=== PATIENT | female | born 1975 | race African-American/Black ===

== ENCOUNTER 2017-07-21 10:52 | Emergency (ER) | payer OTHER ==
[2017-07-21 11:05] VITALS: BMI 26.6
[2017-07-21] MEDS ORDERED: morphine CARPU-JECT 4 MG/1 ML DISP.SYRIN IVPUSH ONE (13:00)
[2017-07-21] MEDS ORDERED: morphine SULFATE 4 MG/ML VIAL ONE (13:36)
--- NOTE | 2017-07-21 13:46 | PDOC ---
History of Present Illness - General History Source: Patient Exam Limitations: No Limitations - History of Present Illness Initial Comments: 07/21/17 14:08 The patient is a 42 year old female, with a significant past medical history of Gastric bypass, HTN who presents to the emergency department with diffuse abdominal pain for the past 2 days. Patient reports pain began last week and describes it as tugging and pulling , 8/10 in severity. Patient states her pain has progressively worsened with associated nausea. Patient denies any exacerbating or alleviating factors. In the ED, is currently in pain. She denies chest pain, headache or dizziness. She denies fever, chills, vomit, diarrhea or constipation, any changes in flatus. She denies dysuria, frequency, urgency or hematuria. Patient denies sick contacts or recent travel. Allergies: NKA Past surgical history: Gastric bypass Social history: Tobacco use PCP: None <Ling Post - Last Filed: 07/21/17 19:05> <Elder Long - Last Filed: 07/21/17 19:45> <Blas Perkins - Last Filed: 07/24/17 23:41> - General Chief Complaint: Pain, Acute Stated Complaint: PAIN Time Seen by Provider: 07/21/17 12:23 Past History <Ling Post - Last Filed: 07/21/17 19:05> <Elder Long - Last Filed: 07/21/17 19:45> - Past Medical History COPD: No Diabetes: Yes (not on meds anymore after weight loss) HTN: Yes - Surgical History GI Surgery: Yes (GASTRIC BYPASS) - Immunization History Immunization Up to Date: Yes - Suicide/Smoking/Psychosocial Hx Smoking Status: No Smoking History: Never smoked Number of Cigarettes Smoked Daily: 3 Information on smoking cessation initiated: No Hx Alcohol Use: No Drug/Substance Use Hx: No Substance Use Type: None Hx Substance Use Treatment: No <Blas Perkins - Last Filed: 07/24/17 23:41> - Past Medical History Allergies/Adverse Reactions: Allergies Allergy/AdvReac Type Severity Reaction Status Date / Time No Known Allergies Allergy Verified 07/21/17 10:59 Review of Systems - Review of Systems Able to Perform ROS?: Yes Comments:: 07/21/17 14:08 A complete review of 10 out of 10 review of systems is taken and is negative apart from what is previously mentioned below and in the HPI. <Ling Post - Last Filed: 07/21/17 19:05> *Physical Exam - Vital Signs Last Vital Signs Temp Pulse Resp BP Pulse Ox 97.9 F 66 16 114/59 100 07/21/17 11:01 07/21/17 11:01 07/21/17 11:01 07/21/17 11:01 07/21/17 11:01 - Physical Exam Comments: 07/21/17 14:08 Vitals: Triage Vital signs reviewed General Appearance: no acute distress, well nourished well developed, Head: Atraumatic, normocephalic Neck: Supple;No Nuchal rigidity Chest Wall: Nontender Cardiac: Regular rate and rhythm, no murmurs, no rubs, no gallops, Lungs: Clear to auscultation bilateral, good air movement bilaterally, Abdomen: +Diffuse abdominal tenderness, maximal upper L tenderness. Soft, normal bowel sounds. Extremities: Full range of motion to all extremities, no cyanosis, clubbing, or edema Skin: Warm and dry, no rashes or lesions, no petechiae <Ling Post - Last Filed: 07/21/17 19:05> - Vital Signs Last Vital Signs Temp Pulse Resp BP Pulse Ox 97.9 F 66 16 114/59 100 07/21/17 11:01 07/21/17 11:01 07/21/17 11:01 07/21/17 11:01 07/21/17 11:01 <Elder Long - Last Filed: 07/21/17 19:45> - Vital Signs Last Vital Signs Temp Pulse Resp BP Pulse Ox 97.9 F 66 16 114/59 100 07/21/17 11:01 07/21/17 11:01 07/21/17 11:01 07/21/17 11:01 07/21/17 11:01 <Blas Perkins - Last Filed: 07/24/17 23:41> ED Treatment Course - LABORATORY CBC & Chemistry Diagram: 07/21/17 13:57 07/21/17 14:09 <Ling Post - Last Filed: 07/21/17 19:05> - LABORATORY CBC & Chemistry Diagram: 07/21/17 13:57 07/21/17 14:09 - ADDITIONAL ORDERS Additional order review: Laboratory Results 07/21/17 07/21/17 07/21/17 14:09 14:09 14:09 Sodium 140 Potassium 3.9 Chloride 103 Carbon Dioxide 27 Anion Gap 10 BUN 8 Creatinine 0.6 Random Glucose 90 Calcium 8.3 L Serum , Qual Negative Blood Type A POSITIVE Antibody Screen Negative 07/21/17 13:57 RBC 3.51 L MCV 85.6 MCHC 32.9 RDW 14.8 MPV 8.6 Neutrophils % 68.7 Lymphocytes % 21.5 Monocytes % 8.6 Eosinophils % 0.7 Basophils % 0.5 - Medications Given in the ED: ED Medications Discontinued Medications Generic Name Dose Route Start Last Admin Trade Name Elvira PRN Reason Stop Dose Admin Morphine Sulfate 4 mg 07/21/17 13:00 07/21/17 13:35 Morphine Injection - IVPUSH 07/21/17 13:01 4 mg ONCE ONE Administration Ondansetron HCl 4 mg 07/21/17 14:07 07/21/17 14:08 Zofran Injection IVPUSH 07/21/17 14:08 4 mg ONCE ONE Administration <Elder Long - Last Filed: 07/21/17 19:45> - LABORATORY CBC & Chemistry Diagram: 07/21/17 13:57 07/21/17 14:09 - RADIOLOGY Radiology Studies Ordered: Category Date Time Status ABDOMEN & PELVIS CT WITH CONTR [CT] Stat CT Scan 07/21/17 12:59 Ordered <Blas Perkins - Last Filed: 07/24/17 23:41> Medical Decision Making - Medical Decision Making 07/21/17 18:[address] Shahla Jones via phone answering service. Awaiting call back. 07/21/17 18:[address] Shahla Jones via phone answering service. Awaiting call back. 07/21/17 19:06 Patient to be trasnferred to [facility] Transfer center called. <Ling Post - Last Filed: 07/21/17 19:05> - Medical Decision Making 07/21/17 19:40 [facility] Transfer Center called @15:40pm. Transport Status update. <Elder Long - Last Filed: 07/21/17 19:45> - Medical Decision Making Well-appearing past medical history significant for previous gastric bypass Patient presents with abdominal pain for 2 days. We'll check labs hydrate pain medication CT abdomen and pelvis with oral and IV contrast and reassess CT findings as dictated. Pt. Consented for transfer. Dr. Bright Grimes surgery to admit patient. <Blas Perkins - Last Filed: 07/24/17 23:41> *DC/Admit/Observation/Transfer - Attestations Scribe Attestion: 07/21/17 14:08 Documentation prepared by Ling Post, acting as medical records analyst for Blas Perkins MD <Ling Post - Last Filed: 07/21/17 19:05> <Elder Long - Last Filed: 07/21/17 19:45> <Blas Perkins - Last Filed: 07/24/17 23:41> Diagnosis at time of Disposition: Abdominal pain - Discharge Dispostion Disposition: TRANSFER ACUTE CARE/OTHER HOSP Condition at time of disposition: Stable
[2017-07-21] MEDS ORDERED: ONDANSETRON 4 MG/2 ML VIAL ONE (13:48)
[2017-07-21] MEDS ORDERED: ONDANSETRON 4 MG/2 ML VIAL IVPUSH ONE (14:07)
[2017-07-21 14:26] LABS: BASOPHIL 0.5 % (0-2.0); EOSINOPHIL 0.7 % (0-4.5); MCH 28.2 pg (25.7-33.7); MCHC 32.9 g/dl (32.0-36.0); MEAN CELL VOLUME 85.6 fl (80-96); MEAN PLT VOLUME 8.6 fl (7.5-11.1); NEUTROPHILS 68.7 % (42.8-82.8); PLATELET COUNT 260 K/MM3 (134-434); RDW 14.8 % (11.6-15.6); WHITE BLOOD COUNT 6.5 K/mm3 (4.0-10.0)
[2017-07-21 14:49] LABS: ANION GAP 10 (8-16); CALCIUM 8.3 mg/dL (8.5-10.1); CO2 27 mmol/L (21-32); CREATININE 0.6 mg/dL (0.55-1.02); GLUCOSE,RANDOM 90 mg/dL (74-106)
[2017-07-21 20:50] VITALS: BP 115/75; PULSE 60; TEMP 98.1
== END 2017-07-21 22:26 | disposition short-term general hospital (02) ==
LOC: JER 10:52
PROC: 3E033GC Introduction of Other Therapeutic Substance into Peripheral Vein, Percutaneous Approach (ICD-10-PCS; principal; 2017-07-21)
PROC: 3E033NZ Introduction of Analgesics, Hypnotics, Sedatives into Peripheral Vein, Percutaneous Approach (ICD-10-PCS; 2017-07-21)
DX: R10.84 Generalized abdominal pain (principal); Z98.84 Bariatric surgery status; I10 Essential (primary) hypertension; E11.9 Type 2 diabetes mellitus without complications
CPT/HCPCS: 36415; 74177-TC; 80048; 84703; 85025; 86850; 86900; 86901; 99283-25; Q9967

== ENCOUNTER 2018-07-14 07:41 | Inpatient (IN) | payer OTHER ==
[2018-07-14 07:45] VITALS: BMI 30.4
--- NOTE | 2018-07-14 08:45 | PDOC ---
History of Present Illness - General Chief Complaint: Pain Stated Complaint: R SIDED ABD PAIN Time Seen by Provider: 07/14/18 08:23 History Source: Patient Exam Limitations: Clinical Condition - History of Present Illness Initial Comments: 07/14/18 08:40 Patient with history of multiple sclerosis not on medication a uterine fibroid present with complain of 4 days history of suprapubic and right pelvic pain since that her menstrual period 4 days ago. Patient reports she usually doesn't get this kind of pain with her menses and have regular monthly menstrual periods. Patient reported she was told she had uterine fibroids 3 years ago. Patient denies fever, chills, nausea, vomiting, diarrhea or constipation. Patient still on her menses now Timing/Duration: other (4 days) Past History - Past Medical History Allergies/Adverse Reactions: Allergies Allergy/AdvReac Type Severity Reaction Status Date / Time No Known Allergies Allergy Verified 07/14/18 07:45 COPD: No DVT: No Dementia: No Diabetes: No HTN: No Thyroid Disease: No Other medical history: MS NOT ON MEDS - Surgical History Abdominal Surgery: Yes (gastric bypass) GI Surgery: Yes (GASTRIC BYPASS) - Immunization History Immunization Up to Date: Yes - Suicide/Smoking/Psychosocial Hx Smoking Status: No Smoking History: Current every day smoker Number of Cigarettes Smoked Daily: 4 Information on smoking cessation initiated: Yes 'Breaking Loose' booklet given: 07/14/18 Hx Alcohol Use: No Drug/Substance Use Hx: No Substance Use Type: None Hx Substance Use Treatment: No Review of Systems - Review of Systems Able to Perform ROS?: Yes Is the patient limited Czech proficient: No Constitutional: No: Chills, Fever, Weakness HEENTM: No: Symptoms Reported Respiratory: No: Cough, Orthopnea, Shortness of Breath, SOB with Exertion, SOB at Rest, Stridor, Wheezing, Productive cough, Hemoptysis, Other Cardiac (ROS): No: Chest Pain, Edema, Irregular Heart Rate, Lightheadedness, Palpitations, Syncope, Chest Tightness, Other ABD/GI: Yes: See HPI, Abdominal cramping (suprapubic, right pelvic). No: Abdominal Distended, Constipated, Diarrhea, Difficulty Swallowing, Nausea, Rectal Bleeding, Vomiting : Yes: Pain (right pelvic). No: Burning, Dysuria, Discharge, Frequency, Flank Pain, Hematuria Musculoskeletal: No: Back Pain All Other Systems: Reviewed and Negative *Physical Exam - Vital Signs Last Vital Signs Temp Pulse Resp BP Pulse Ox 99.1 F 79 17 113/60 98 07/14/18 07:43 07/14/18 07:43 07/14/18 07:43 07/14/18 07:43 07/14/18 07:43 - Physical Exam Comments: 07/14/18 08:44 GENERAL: Well developed, well nourished. Awake and alert. In mild acute distress. CARDIOVASCULAR: Regular rate and rhythm. No murmurs, rubs, or gallops. Distal pulses are 2+ and symmetric. PULMONARY: No evidence of respiratory distress. Lungs clear to auscultation bilaterally. No wheezing, rales or rhonchi. ABDOMINAL: Moderate tenderness to right pelvic with mild tenderness to right lower quadrant without guarding or rebound.Soft. Non-distended. No organomegaly. Normoactive bowel sounds. : SKIN: Warm and dry. Normal capillary refill. No rashes. No jaundice. NEUROLOGICAL: Alert, awake, appropriate. PSYCHIATRIC: Cooperative. Good eye contact. Appropriate mood and affect. General Appearance: Yes: Nourished, Appropriately Dressed, Mild Distress ED Treatment Course - LABORATORY CBC & Chemistry Diagram: 07/14/18 08:43 07/14/18 08:43 - RADIOLOGY Radiology Studies Ordered: Category Date Time Status ABDOMEN US -LIMITED [US] Stat Ultrasound 07/14/18 08:32 Ordered TRANSVAGINAL ULTRASOUND US [US] Stat Ultrasound 07/14/18 08:32 Ordered Medical Decision Making - Medical Decision Making 07/14/18 08:45 Patient with history of multiple sclerosis did not on meds a uterine fibroids presenting with complain of right pelvic pain for 4 days since start of her menses 4 days ago. Exam significant for moderate right pelvic pain with mild right lower quadrant pain. UA and urine culture ordered. CBC CMP and urine hCG ordered. Abdominal pelvic ultrasound ordered. Toradol 60 mg IM for pain. Treat based on lab and imaging results 07/14/18 11:08 Patient with low Hem of 6.6. US results still pending. results discussed with patient and patient advised she will need blood transfusion and will have to be observed for at least 24hrs. Pt agrees to plan. medicine consult initiated 07/14/18 11:27 informed consent for blood transfusion obtained from patient 07/14/18 11:44 Patient admitted to medicine under Dr. Esquivel. spoke to Dr. Esquivel to suggest to get hem consult. consult to hem placed *DC/Admit/Observation/Transfer Diagnosis at time of Disposition: Anemia Qualifiers: Anemia type: unspecified type Qualified Code(s): D64.9 - Anemia, unspecified Uterine fibroid Qualifiers: Uterine leiomyoma location: unspecified location Qualified Code(s): D25.9 - Leiomyoma of uterus, unspecified - Discharge Dispostion Condition at time of disposition: Stable Decision to Admit order: Yes Decision to Admit order Date/Time: 07/14/18 11:10 Patient with low H&H and work on blood transfusion. Patient needs to be observed for at least 24 hours posttransfusion - Referrals Referrals: Augustin Olmedo [Primary Care Provider] - - Patient Instructions - Post Discharge Activity
[2018-07-14] MEDS ORDERED: KETOROLAC TROMETHAMINE 60 MG/2 ML VIAL IM ONE (08:47)
[2018-07-14] MEDS ORDERED: ACETAMINOPHEN 1000 MG/100 ML VIAL (NON FORMULARY) IVPB ONE (09:11)
[2018-07-14] MEDS ORDERED: ACETAMINOPHEN INJECTION 100 ML IVPB ONE (09:16)
--- NOTE | 2018-07-14 09:34 | PDOC ---
*Physical Exam - Vital Signs Last Vital Signs Temp Pulse Resp BP Pulse Ox 99.1 F 79 17 113/60 98 07/14/18 07:43 07/14/18 07:43 07/14/18 07:43 07/14/18 07:43 07/14/18 07:43 ED Treatment Course - LABORATORY CBC & Chemistry Diagram: 07/17/18 08:11 07/17/18 08:11 - Medications Given in the ED: ED Medications Discontinued Medications Generic Name Dose Route Start Last Admin Trade Name Elvira PRN Reason Stop Dose Admin Acetaminophen 1,000 mg 07/14/18 09:11 07/14/18 09:22 Ofirmev Injection - IVPB 07/14/18 09:12 1,000 mg ONCE ONE Administration Ketorolac Tromethamine 60 mg 07/14/18 08:47 07/14/18 09:12 Toradol Injection - IM 07/14/18 08:48 Not Given ONCE ONE Medical Decision Making - Medical Decision Making 07/14/18 09:30 Ms Mercado is a 43 yo F who presents to the ER with a complaint of right pelvic pain She has a h/o fibroids and MS She has had 4 days of suprapubic pain and pelvic pain that began when her period began No fevers or chills Labs US Re assess Found to be anemic Transfusion ordered Pt admitted to hospitalist *DC/Admit/Observation/Transfer Diagnosis at time of Disposition: Anemia, Uterine fibroid - Discharge Dispostion Condition at time of disposition: Stable - Referrals - Patient Instructions - Post Discharge Activity
[2018-07-14 10:34] LABS: HCG,QUALITATIVE URINE Negative
[2018-07-14 10:40] LABS: BASO % 0.3 % (0-2.0); EOS % 0.2 % (0-4.5); HEMATOCRIT 21.6 % (32.4-45.2); LYMPH % 10.1 % (8-40); MCH 20.6 pg (25.7-33.7); MCHC 30.4 g/dl (32.0-36.0); MEAN PLT VOLUME 8.4 fl (7.5-11.1); MONO % 13.1 % (3.8-10.2); NEUT % 76.3 % (42.8-82.8); PLATELET COUNT 301 K/MM3 (134-434); RBC 3.18 M/mm3 (3.60-5.2); RDW 19.3 % (11.6-15.6); WHITE BLOOD COUNT 9.2 K/mm3 (4.0-10.0)
[2018-07-14 10:50] LABS: URINE APPEARANCE SLCLOUDY; URINE BILIRUBIN NEGATIVE (<2.0 mg/dL); URINE COLOR AMBER; URINE GLUCOSE (UA) NEGATIVE (NEGATIVE); URINE KETONE NEGATIVE (NEGATIVE); URINE LEUK ESTERASE NEGATIVE (NEGATIVE); URINE NITRITE NEGATIVE (NEGATIVE); URINE PROTEIN NEGATIVE (NEGATIVE)
[2018-07-14 10:54] LABS: HEMOGLOBIN 6.6 GM/dL (10.7-15.3)
[2018-07-14 10:55] LABS: EPI CELLS RARE /HPF (FEW); URINE MUCUS RARE
[2018-07-14 11:02] LABS: ALBUMIN 3.4 g/dl (3.4-5.0); ALK PHOS 100 U/L (45-117); ANION GAP 9 MMOL/L (8-16); BILIRUBIN,TOTAL 0.4 mg/dL (0.2-1); BLOOD UREA NITROGEN 6 mg/dL (7-18); CALCIUM 8.1 mg/dL (8.5-10.1); CHLORIDE 101 mmol/L (98-107); CO2 28 mmol/L (21-32); CREATININE 0.6 mg/dL (0.55-1.3); GLUCOSE,RANDOM 78 mg/dL (74-106); POTASSIUM 3.6 mmol/L (3.5-5.1); SGOT/AST 30 U/L (15-37); SGPT/ALT 26 U/L (13-61); SODIUM 138 mmol/L (136-145); TOT PROT 7.2 g/dl (6.4-8.2)
[2018-07-14 12:11] LABS: ANISOCYTOSIS 2+; MACROCYTOSIS 0; PLATELET ESTIMATE NORMAL
[2018-07-14] MEDS ORDERED: ACETAMINOPHEN 325 MG TABLET (FP) PO ONE (13:03)
[2018-07-14] MEDS ORDERED: ACETAMINOPHEN 325 MG TABLET (FP) ONE (13:05)
[2018-07-14] MEDS ORDERED: diphenhydrAMINE HCL 25 MG CAPSULE (FP) PO ONE ×2 (13:05→13:06)
--- NOTE | 2018-07-14 15:11 | HP ---
Admitting History and Physical - Primary Care Physician PCP: Shara Barrett I (Stephanie Belcher) - Admission Chief Complaint: Suprapubic pain. Anemia History of Present Illness: Patient with history of multiple sclerosis not on medication a uterine fibroid present with complain of 4 days history of suprapubic and right pelvic pain since that her menstrual period 4 days ago. Patient reports she usually doesn't get this kind of pain with her menses and have regular monthly menstrual periods. Patient reported she was told she had uterine fibroids 3 years ago. Patient denies fever, chills, nausea, vomiting, diarrhea or constipation. Patient still on her menses now Last saw Dr Barrett 1 year ago for her physical Last saw NANOTECHNOLOGY TECHNICIAN Dr Velez 2-3 months ago, was told she has small fibroids and to monitor Received 2 units of PRBC upon admission History Source: Patient, Medical Record Limitations to Obtaining History: No Limitations - Past Medical History ...LMP: 07/11/18 ...: No - Smoking History Smoking history: Current every day smoker Aproximately how many cigarettes per day: 4 - Alcohol/Substance Use Hx Alcohol Use: No Home Medications - Allergies Allergies/Adverse Reactions: Allergies Allergy/AdvReac Type Severity Reaction Status Date / Time No Known Allergies Allergy Verified 07/14/18 07:45 - Home Medications Home Medications: Ambulatory Orders NK [No Known Home Medication] 07/14/18 Review of Systems - Review of Systems Constitutional: reports: Weakness Eyes: reports: No Symptoms HENT: reports: No Symptoms Neck: reports: No Symptoms Cardiovascular: reports: No Symptoms Respiratory: reports: No Symptoms Gastrointestinal: reports: Other (Suprapubic pain) Genitourinary: reports: No Symptoms, Menses (heavy) Breasts: reports: No Symptoms Reported Musculoskeletal: reports: No Symptoms Integumentary: reports: No Symptoms Neurological: reports: No Symptoms Endocrine: reports: No Symptoms Hematology/Lymphatic: reports: No Symptoms Psychiatric: reports: No Symptoms Physical Examination Vital Signs: Vital Signs Temperature 100.2 F H 07/14/18 13:40 Pulse Rate 70 07/14/18 13:40 Respiratory Rate 16 07/14/18 13:40 Blood Pressure 103/60 07/14/18 13:40 O2 Sat by Pulse Oximetry (%) 100 07/14/18 13:40 Constitutional: Yes: Well Nourished, No Distress, Calm Cardiovascular: Yes: Regular Rate and Rhythm, Murmur (Grade II/) Respiratory: Yes: Regular Gastrointestinal: Yes: Normal Bowel Sounds, Soft Musculoskeletal: Yes: WNL Extremities: Yes: WNL Edema: No Peripheral Pulses WNL: Yes Neurological: Yes: Alert, Oriented Psychiatric: Yes: Alert, Oriented Labs: CBC, BMP 07/14/18 08:43 07/14/18 08:43 Problem List - Problems (1) Anemia Assessment/Plan: -2/2 to fibroids and heavy menstrual bleeding -Check iron, thyroid profile, b12, stool OB -replete Iron with Venofer if needed -Last saw NANOTECHNOLOGY TECHNICIAN Dr Velez 2-3 months ago, was told she has small fibroids and to monitor -Received 2 units of PRBC upon admission -hematology consult -monitor labs Code(s): D64.9 - ANEMIA, UNSPECIFIED Qualifiers: Anemia type: unspecified type Qualified Code(s): D64.9 - Anemia, unspecified (2) Uterine fibroid Assessment/Plan: -NANOTECHNOLOGY TECHNICIAN consult outpatient Code(s): D25.9 - LEIOMYOMA OF UTERUS, UNSPECIFIED Qualifiers: Uterine leiomyoma location: unspecified location Qualified Code(s): D25.9 - Leiomyoma of uterus, unspecified (3) Abdominal pain Assessment/Plan: -acetaminophen 650 mg po Q6H PRN -Tramadol 50 mg Q6h PRN for pain 6-10 Code(s): R10.9 - UNSPECIFIED ABDOMINAL PAIN Assessment/Plan see problem list
--- NOTE | 2018-07-14 18:24 | CONSULT ---
Consult Consult Specialty:: Heme/Onc Referred by:: JHONATAN Foss Reason for Consultation:: Anemia - History of Present Illness Chief Complaint: Abdominal pain History of Present Illness: 43F with history of MS presents to the hospital with severe abdominal pain and cramping during her menses. She is currently menstruating and her LMP was 2017. She states that recently she has been having heavier than usual menses for the last 2-3 months. She also has had worsening pain than usual. She has not followed up with Dr. Velez/Letty for a while but was told she has a history of fibroids. 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 She denies nausea vomitng fever chills chest pain or SOB. She sometimes feels like she needs a V8 juice to wake her up and sh3e has been more fatigued lateley. Denies melanotic stool. - History Source History Provided By: Patient, Medical Record Limitations to Obtaining History: No Limitations - Past Medical History ...LMP: 07/11/18 ...: No Additional Medical History: multiple sclerosis. fibroids - Past Surgical History Additional Surgical History: gastric bypass - Alcohol/Substance Use Hx Alcohol Use: No - Smoking History Smoking history: Current every day smoker Aproximately how many cigarettes per day: 4 Home Medications - Allergies Allergies/Adverse Reactions: Allergies Allergy/AdvReac Type Severity Reaction Status Date / Time No Known Allergies Allergy Verified 07/14/18 07:45 - Home Medications Home Medications: Ambulatory Orders NK [No Known Home Medication] 07/14/18 Review of Systems - Review of Systems Constitutional: reports: Malaise Eyes: reports: No Symptoms HENT: reports: No Symptoms Neck: reports: No Symptoms Cardiovascular: reports: No Symptoms Respiratory: reports: No Symptoms Gastrointestinal: reports: No Symptoms Genitourinary: reports: No Symptoms Musculoskeletal: reports: No Symptoms Integumentary: reports: No Symptoms Neurological: reports: No Symptoms Physical Exam Vital Signs: Vital Signs Temperature 100.2 F H 07/14/18 13:40 Pulse Rate 70 07/14/18 13:40 Respiratory Rate 16 07/14/18 13:40 Blood Pressure 103/60 07/14/18 13:40 O2 Sat by Pulse Oximetry (%) 100 07/14/18 16:04 Constitutional: Yes: No Distress, Calm Eyes: Yes: Other (conjunctival pallor) HENT: Yes: Atraumatic Neck: Yes: Supple, Trachea Midline. No: Lymphadenopathy Cardiovascular: Yes: Regular Rate and Rhythm, S1, S2. No: Murmur Respiratory: Yes: Regular, CTA Bilaterally Gastrointestinal: Yes: Soft, Abdomen, Obese, Tenderness Extremities: Yes: Other (no inguinal lymphadenopahty) Edema: No Neurological: Yes: Alert, Oriented Labs: CBC, BMP 07/14/18 08:43 07/14/18 08:43 Imaging - Results Chest X-ray: Report Reviewed, Image Reviewed Ultrasound: Report Reviewed Assessment/Plan 43F with history of MS andf fibroids presents with painful menorrhagia. Problem List: Painful menorrhagia Multiple sclerosis s/p gastric bypass Plan: Check stool for occult blood Spoke to primary care team and states this is a chronic problem and patient needs to go see her COMPUTED TOMOGRAPHY SCANNER OPERATOR for follow up of fibroids agree with 2 units PRBCs Consider GI work up/celiac disease work up as outpatient Trend CBC Transfuse PRN Hb<7 Thank you for this consult
[2018-07-14] MEDS: ACETAMINOPHEN 325 MG TABLET (FP) PO PRN (18:49)
--- NOTE | 2018-07-14 20:00 | PN ---
Teaching Attending Note Name of Resident: Hernán Poole ATTENDING PHYSICIAN STATEMENT I saw and evaluated the patient. I reviewed the resident's note and discussed the case with the resident. I agree with the resident's findings and plan as documented. SUBJECTIVE: Patient seen and examined Ab-1 menarche age 11. Currently menstruating. Regular menses q month for 5 days with first 3 days heavy with clots. Presented with pain. Told of fibroids as outpatient. Presented with Hct 21% Has received one unit of packed cells to date. Past history of Multiple sclerosis- currently- no therapy Hx of gastric bypass. NO GI bleeding Occasional advil Last Vital Signs Temp Pulse Resp BP Pulse Ox 98.1 F 83 20 109/65 100 07/14/18 18:03 07/14/18 18:03 07/14/18 18:03 07/14/18 18:03 07/14/18 16:04 HEENT: LICO, EOM Intact Oropharynx: No thrush, No mucositis Neck: Supple Nodes: Without adenopathy Breasts: Without masses Cor: RSR, No murmurs, No gallops Lungs: Clear to P&A Abd: Soft, Normal bowel sounds, No organomegaly, tender suprapubic area CBC, BMP 07/14/18 08:43 07/14/18 08:43 Ext:No significant edema Skin: No rashes, Integument intact Current Medications Generic Name Dose Route Start Last Admin Trade Name Freq PRN Reason Stop Dose Admin Acetaminophen 650 mg 07/14/18 14:10 07/14/18 18:49 Tylenol - PO 650 mg Q4H PRN Administration FEVER Tramadol HCl 50 mg 07/14/18 18:36 Ultram - PO Q6H PRN PAIN LEVEL 6-10 OBJECTIVE:Lab - ferritin - 4 indicative of Fe++ deficiency. Consider parenterall Fe++ in view of bypass and absorption issues. STABLE ATTENDANT follow up. HbE, celiac screen, stool for occult blood. ASSESSMENT AND PLAN:
[2018-07-14] MEDS: traMADol HCL 50 MG TABLET PO PRN (23:00)
[2018-07-15 07:34] LABS: BASO % 0.3 % (0-2.0); EOS % 0.2 % (0-4.5); HEMATOCRIT 25.2 % (32.4-45.2); HEMOGLOBIN 7.7 GM/dL (10.7-15.3); LYMPH % 9.6 % (8-40); MCH 21.6 pg (25.7-33.7); MCHC 30.7 g/dl (32.0-36.0); MEAN CELL VOLUME 70.4 fl (80-96); MONO % 9.7 % (3.8-10.2); NEUT % 80.2 % (42.8-82.8); PLATELET COUNT 304 K/MM3 (134-434); RBC 3.58 M/mm3 (3.60-5.2); RDW 21.3 % (11.6-15.6); WHITE BLOOD COUNT 11.3 K/mm3 (4.0-10.0)
[2018-07-15 07:59] LABS: ALBUMIN 3.1 g/dl (3.4-5.0); ALK PHOS 89 U/L (45-117); ANION GAP 9 MMOL/L (8-16); BILIRUBIN,TOTAL 0.7 mg/dL (0.2-1); BLOOD UREA NITROGEN 6 mg/dL (7-18); CALCIUM 7.9 mg/dL (8.5-10.1); CHLORIDE 102 mmol/L (98-107); CO2 28 mmol/L (21-32); CREATININE 0.5 mg/dL (0.55-1.3); GLUCOSE,RANDOM 76 mg/dL (74-106); POTASSIUM 3.8 mmol/L (3.5-5.1); SGOT/AST 24 U/L (15-37); SGPT/ALT 22 U/L (13-61); SODIUM 139 mmol/L (136-145); TOT PROT 6.7 g/dl (6.4-8.2)
[2018-07-15] MEDS: traMADol HCL 50 MG TABLET PO PRN ×2 (09:15→15:37)
--- NOTE | 2018-07-15 10:50 | PN ---
Progress Note, Physician Chief Complaint: patient seen and examined has abdominal pain h/h noted - Current Medication List Current Medications: Active Medications Acetaminophen (Tylenol -) 650 mg PO Q4H PRN PRN Reason: FEVER Last Admin: 07/14/18 18:49 Dose: 650 mg Tramadol HCl (Ultram -) 50 mg PO Q6H PRN PRN Reason: PAIN LEVEL 6-10 Last Admin: 07/15/18 09:15 Dose: 50 mg - Objective Vital Signs: Vital Signs Temperature 98.9 F 07/15/18 06:00 Pulse Rate 70 07/15/18 06:00 Respiratory Rate 20 07/15/18 06:00 Blood Pressure 103/64 07/15/18 06:00 O2 Sat by Pulse Oximetry (%) 100 07/14/18 21:00 Constitutional: Yes: Mild Distress Cardiovascular: Yes: Regular Rate and Rhythm, S1, S2 Respiratory: Yes: CTA Bilaterally Gastrointestinal: Yes: Tenderness (RLQ) Edema: No Neurological: Yes: Alert, Oriented Labs: CBC, BMP 07/15/18 06:00 07/15/18 06:00 Problem List - Problems (1) Anemia Assessment/Plan: iv venofer prbc to improve h/h above 8 only got 1 unit of prbc so far and h/h improve from 6-7 heme on board secondary to heavy menstrual periods Code(s): D64.9 - ANEMIA, UNSPECIFIED Qualifiers: Anemia type: iron deficiency Qualified Code(s): D64.9 - Anemia, unspecified (2) Uterine fibroid Assessment/Plan: mri of pelvis to look for infarction /necrosis of fibroids tenderness on exam pain meds obgyn consult ordered Code(s): D25.9 - LEIOMYOMA OF UTERUS, UNSPECIFIED Qualifiers: Uterine leiomyoma location: unspecified location Qualified Code(s): D25.9 - Leiomyoma of uterus, unspecified (3) Abdominal pain Assessment/Plan: secondary to fibroids Code(s): R10.9 - UNSPECIFIED ABDOMINAL PAIN
--- NOTE | 2018-07-15 10:55 | PN ---
Progress Note (short form) - Note Progress Note: patient has low grade temp 100.1 leukocytosis noted siddhartha get MRI of pelvis cultures are pending given temp 100.9 will hold off on transfusion right now til temp is < 99.0 ID consult Problem List - Problems (1) Anemia Code(s): D64.9 - ANEMIA, UNSPECIFIED Qualifiers: Anemia type: iron deficiency Qualified Code(s): D64.9 - Anemia, unspecified (2) Uterine fibroid Code(s): D25.9 - LEIOMYOMA OF UTERUS, UNSPECIFIED Qualifiers: Uterine leiomyoma location: unspecified location Qualified Code(s): D25.9 - Leiomyoma of uterus, unspecified (3) Abdominal pain Code(s): R10.9 - UNSPECIFIED ABDOMINAL PAIN
--- NOTE | 2018-07-15 14:30 | PN ---
Progress Note (short form) - Note Progress Note: ID Consult dictated 43 y/o female with hx uterine fibroids admitted with pelvic pain, vaginal bleeding, anemia Febrile 100.9 ? Fever secondary to degenerating fibroids ?PID Await c/s Empiric zosyn/ doxycycline ANTHROPOLOGIST PHYSICAL consult HIV test ( pt consents)
--- NOTE | 2018-07-15 15:13 | CONS ---
DATE OF CONSULTATION: 07/15/2018 The patient is a 43-year-old female with a known history of uterine fibroids evaluated for fever. She was admitted to the hospital on July 15, 2018 with a 4-day history of suprapubic and right pelvic pain. She was evaluated in the emergency room where she was noted to be markedly anemic with a hemoglobin of 6.6. The patient has a known history of uterine fibroids and presently has her menstrual period. She reports excessive bleeding over the past 2 to 3 months. Her course has now been complicated by fever to 100.9. The patient states that she has felt febrile and denies any shaky chills. She denies any vaginal discharge other than bleeding. No dysuria or hematuria although she does experience relief after micturition. She denies any chest pain, shortness of breath, cough or sputum production. PAST MEDICAL HISTORY: Positive for multiple sclerosis not presently on treatment and a history of uterine fibroids. PAST SURGICAL HISTORY: Status post gastric bypass. ALLERGIES: No known allergies. MEDICATIONS: Include Tylenol and Ultram. SOCIAL HISTORY: She lives at home in the community. She is a smoker. She denies a history of alcohol abuse or illicit drug use. Her HIV status is not known. SYSTEM REVIEW: Neurologic: No loss of consciousness, seizure activity or focal weakness. Cardiac: Negative chest pain or palpitations. Respiratory: Negative cough or sputum production. Gastrointestinal: Negative vomiting. No diarrhea. Genitourinary: As per HPI. LABORATORY DATA: White count 11.3, hematocrit 25.2, and platelet count 304. Creatinine 0.5. Blood cultures pending. Urine culture no growth. Urine for chlamydia and gonorrhea pending. Chest x-ray is negative for acute infiltrate. PHYSICAL EXAMINATION: General: She is awake. She is in moderate distress secondary to pelvic pain. Vital Signs: Temperature 100.9, blood pressure 111/57, pulse 82 and regular, and respirations 18 per minute. HEENT: Sclerae anicteric. Heart: Sounds S1, S2. Lungs: Clear bilaterally. Abdomen: Soft. There is suprapubic and right lower abdominal pain to palpation. No mass, rebound or rigidity. Extremities: Negative for edema. IMPRESSION: This is a 43-year-old female with a history of uterine fibroids admitted with pelvic pain, vaginal bleeding and anemia now febrile at 100.9. 1. Possible fever secondary to degenerating fibroids. 2. Rule out pelvic inflammatory disease. PLAN: Await cultures. Await urine for chlamydia and gonorrhea. TRANSCRIPTION SPECIALIST consult. Empiric antibiotic coverage with Zosyn and doxycycline. HIV test (the patient gives verbal consent). We will follow. Thank you for the kind referral. NOE PATEL M.D. [id number]
[2018-07-15] MEDS ORDERED: PIPERACILLIN/TAZOBACTAM 3.375 GM VIAL IVPB ONE (15:32)
[2018-07-15] MEDS ORDERED: DEXTROSE 5%-WATER - 50 ML IVPB ONE (15:32)
[2018-07-15] MEDS: PIPERACILLIN/TAZOB 3.375 GM 3.375 GM in DEXTROSE 5%-WATER - 50 ML IVPB SCH ×2 (15:37→17:09)
[2018-07-15] MEDS: ACETAMINOPHEN 325 MG TABLET (FP) PO PRN ×2 (15:37→21:30)
[2018-07-15] MEDS ORDERED: PT OWN MED DRAWER 7, Y5N ONE (17:55)
[2018-07-15] MEDS: DOXYCYCLINE HYCLATE 100 MG CAPSULE PO SCH (17:58)
[2018-07-15] MEDS ORDERED: SODIUM CHLORIDE 1,000 ML IV STA (18:18)
--- NOTE | 2018-07-15 23:30 | CONS ---
DATE OF CONSULTATION: 07/15/2018 REASON FOR CONSULTATION: Pelvic pain, fever, fibroid uterus, anemia. HISTORY OF PRESENT ILLNESS: I was asked to see this patient because of history of fibroid and anemia. Patient is a 43-year-old 3 para 3 with 2 previous and 1 normal vaginal delivery. Known history of fibroid uterus, who was admitted with severe anemia and fever for 4 days. She states that her last period was a week ago and the day after the period started, she started feeling warm and having pain which was mostly located on the right side of the pelvic area with cramps felt weak. No vaginal discharge, no dysuria, no nausea, vomiting or diarrhea. The patient still has light bleeding from her period. On admission, her temperature was 99.9, which she spiked to 101 degree Fahrenheit. Her blood pressure was 92/60. Her laboratory, her white count on admission was 9.2, hemoglobin 6.3, hematocrit 20.1. Patient received 2 units of packed RBCs, her white count has increased to 11.3, hemoglobin 7.7, hematocrit 25. At this time the patient is asymptomatic but has some mild lower abdominal pain. PAST MEDICAL HISTORY: Significant for multiple sclerosis. She is not on any medication. Her previous Pap smear has been normal. She denied any history of PID or history of sexually transmitted infection. PHYSICAL EXAMINATION: GENERAL: Patient was alert, oriented, and comfortable in bed. ABDOMEN: Soft. No distention. There was right lower quadrant tenderness with palpation and also she had some pain on the mid low pelvic area. PELVIS: Pelvic exam showed external genitalia to be normal. Vagina had some dark old blood. Cervix was clean. No gross lesion. No cervical motion tenderness. Uterus was enlarged, approximately 14 weeks size and tender. Tenderness mostly on the right adnexal area but no masses were palpable. Fibroids were felt. IMPRESSION: Menorrhagia, anemia secondary to fibroid uterus. Fever and right lower quadrant pain. Rule out appendicitis. Possible fibroid degeneration. Possible pelvic inflammatory disease. Advise blood transfusion to bring hemoglobin to 9 or [address] IV [address] scan of the pelvis and abdomen, rule out appendicitis. Also surgical consultation. For present time, please continue IV antibiotic. We will follow up after the CT scan done. LETTY AHUMADA M.D. [id number]
[2018-07-16] MEDS ORDERED: PIPERACILLIN/TAZOBACTAM 3.375 GM VIAL IVPB ONE ×3 (01:31→17:59)
[2018-07-16] MEDS ORDERED: DEXTROSE 5%-WATER - 50 ML IVPB ONE ×3 (01:32→17:59)
[2018-07-16] MEDS: PIPERACILLIN/TAZOB 3.375 GM 3.375 GM in DEXTROSE 5%-WATER - 50 ML IVPB SCH ×3 (02:18→18:04)
[2018-07-16] MEDS ORDERED: INSULIN (NOVOLOG) ASPART 100 UNITS/ML 10ML VIAL ONE (07:00)
[2018-07-16 07:19] LABS: BASO % 0.2 % (0-2.0); EOS % 0.6 % (0-4.5); HEMATOCRIT 26.1 % (32.4-45.2); HEMOGLOBIN 8.3 GM/dL (10.7-15.3); LYMPH % 10.8 % (8-40); MCH 22.9 pg (25.7-33.7); MCHC 31.8 g/dl (32.0-36.0); MEAN PLT VOLUME 8.1 fl (7.5-11.1); MONO % 10.5 % (3.8-10.2); NEUT % 77.9 % (42.8-82.8); PLATELET COUNT 291 K/MM3 (134-434); RBC 3.63 M/mm3 (3.60-5.2); RDW 21.5 % (11.6-15.6); WHITE BLOOD COUNT 10.5 K/mm3 (4.0-10.0)
[2018-07-16 07:53] LABS: ALBUMIN 2.8 g/dl (3.4-5.0); ALK PHOS 85 U/L (45-117); ANION GAP 6 MMOL/L (8-16); BILIRUBIN,TOTAL 0.6 mg/dL (0.2-1); BLOOD UREA NITROGEN 6 mg/dL (7-18); CALCIUM 8.1 mg/dL (8.5-10.1); CHLORIDE 103 mmol/L (98-107); CO2 31 mmol/L (21-32); CREATININE 0.6 mg/dL (0.55-1.3); GLUCOSE,RANDOM 82 mg/dL (74-106); SGOT/AST 30 U/L (15-37); SGPT/ALT 24 U/L (13-61); SODIUM 139 mmol/L (136-145); TOT PROT 6.5 g/dl (6.4-8.2)
[2018-07-16 08:06] LABS: SERUM IRON SATURATION 12 % (15-55); TOTAL IRON BINDING CAPACITY 412 ug/dL (250-450); UIBC 364 ug/dL (131-425)
[2018-07-16] MEDS ORDERED: PT OWN MED DRAWER 7, Y5N ONE (09:30)
[2018-07-16] MEDS: DOXYCYCLINE HYCLATE 100 MG CAPSULE PO SCH ×2 (09:35→17:13)
--- NOTE | 2018-07-16 12:35 | PN ---
Progress Note, Physician Chief Complaint: feeling cold with shivers on iv abx has abdominal pain awaiting MRI result - Current Medication List Current Medications: Active Medications Acetaminophen (Tylenol -) 650 mg PO Q4H PRN PRN Reason: FEVER Last Admin: 07/15/18 21:30 Dose: 650 mg Doxycycline Hyclate (Vibramycin -) 100 mg PO BID@1000,1800 ARLYN Last Admin: 07/16/18 09:35 Dose: 100 mg Piperacillin Sod/Tazobactam (Sod 3.375 gm/ Dextrose) 50 mls @ 100 mls/hr IVPB Q8H-IV ARLYN; Protocol Last Admin: 07/16/18 09:35 Dose: 100 mls/hr Tramadol HCl (Ultram -) 50 mg PO Q6H PRN PRN Reason: PAIN LEVEL 6-10 Last Admin: 07/15/18 15:37 Dose: 50 mg - Objective Vital Signs: Vital Signs Temperature 100.0 F H 07/16/18 10:00 Pulse Rate 65 07/16/18 10:00 Respiratory Rate 20 07/16/18 10:00 Blood Pressure 109/78 07/16/18 10:00 O2 Sat by Pulse Oximetry (%) 98 07/15/18 21:00 Constitutional: Yes: Calm Cardiovascular: Yes: Regular Rate and Rhythm, S1, S2 Respiratory: Yes: CTA Bilaterally Gastrointestinal: Yes: Tenderness, Other (RLQ) Edema: No Neurological: Yes: Alert, Oriented Labs: CBC, BMP 07/16/18 06:00 07/16/18 06:00 Problem List - Problems (1) Anemia Assessment/Plan: iv venofer prbc to improve h/h above 8 s/p units of PRBC heme on board secondary to heavy menstrual periods Code(s): D64.9 - ANEMIA, UNSPECIFIED Qualifiers: Anemia type: iron deficiency Qualified Code(s): D64.9 - Anemia, unspecified (2) Uterine fibroid Assessment/Plan: mri of pelvis to look for infarction /necrosis of fibroids-pending result tenderness on exam pain meds obgyn saw patient Code(s): D25.9 - LEIOMYOMA OF UTERUS, UNSPECIFIED Qualifiers: Uterine leiomyoma location: unspecified location Qualified Code(s): D25.9 - Leiomyoma of uterus, unspecified (3) Abdominal pain Assessment/Plan: secondary to fibroids Code(s): R10.9 - UNSPECIFIED ABDOMINAL PAIN
--- NOTE | 2018-07-16 14:41 | CONSULT ---
Consult Consult Specialty:: General Surgery Reason for Consultation:: abdominal pain - History of Present Illness Chief Complaint: abdominal pain History of Present Illness: 43yo female PMH multiple sclerosis not on medication a uterine fibroid present with complain of 4 days history of suprapubic and right pelvic pain since that her menstrual period 4 days ago. Patient reports she usually doesn't get this kind of pain with her menses and have regular monthly menstrual periods. Patient reported she was told she had uterine fibroids 3 years ago. Patient denies fever, chills, nausea, vomiting, diarrhea or constipation. Patient still on her menses now. we were called to assess. - History Source History Provided By: Patient, Medical Record Limitations to Obtaining History: No Limitations - Past Medical History ...LMP: 07/11/18 ...: No Additional Medical History: multiple sclerosis. fibroids - Past Surgical History Additional Surgical History: gastric bypass - Alcohol/Substance Use Hx Alcohol Use: No - Smoking History Smoking history: Current every day smoker Aproximately how many cigarettes per day: 4 Home Medications - Allergies Allergies/Adverse Reactions: Allergies Allergy/AdvReac Type Severity Reaction Status Date / Time No Known Allergies Allergy Verified 07/14/18 07:45 - Home Medications Home Medications: Ambulatory Orders NK [No Known Home Medication] 07/14/18 Review of Systems - Review of Systems Constitutional: denies: Chills, Fever Eyes: denies: Blurred Vision, Recent Change in Vision HENT: denies: Difficult Swallowing, Throat Pain Neck: denies: Stiffness, Tenderness Cardiovascular: denies: Chest Pain, Palpitations Respiratory: denies: Cough, SOB Gastrointestinal: reports: Abdominal Pain. denies: Constipation, Diarrhea Genitourinary: denies: Discharge, Dysuria Breasts: reports: No Symptoms Reported. denies: Pain Musculoskeletal: denies: Back Pain, Muscle Pain, Muscle Weakness Integumentary: denies: Erythema, Lesions, Rash Neurological: denies: Seizure, Syncope Endocrine: denies: Unexplained Weight Gain, Unexplained Weight Loss Hematology/Lymphatic: denies: Easily Bruised, Excessive Bleeding Psychiatric: denies: Anxiety, Depression Physical Exam Vital Signs: Vital Signs Temperature 100.0 F H 07/16/18 10:00 Pulse Rate 65 07/16/18 10:00 Respiratory Rate 20 07/16/18 10:00 Blood Pressure 109/78 07/16/18 10:00 O2 Sat by Pulse Oximetry (%) 98 07/15/18 21:00 Constitutional: Yes: Well Nourished, No Distress, Calm Eyes: Yes: Conjunctiva Clear, EOM Intact HENT: Yes: Atraumatic, Normocephalic Neck: Yes: Supple, Trachea Midline Cardiovascular: Yes: Regular Rate and Rhythm, S1, S2 Respiratory: Yes: Regular, CTA Bilaterally Gastrointestinal: Yes: Normal Bowel Sounds, Soft, Abdomen, Obese, Palpable Mass , Tenderness (in lover abdomen bilateral and fillness RLQ). No: Pulsatile Mass , Tenderness, Epigastrium, Tenderness, Rebound Renal/: No: CVA Tenderness - Left, CVA Tenderness - Right Musculoskeletal: No: Muscle Pain, Muscle Weakness Extremities: No: Cool, Cyanosis Edema: No Peripheral Pulses WNL: Yes Integumentary: No: Jaundice, Rash Neurological: Yes: Alert, Oriented Psychiatric: Yes: Alert, Oriented Labs: CBC, BMP 07/16/18 06:00 07/16/18 06:00 Imaging - Results Cat Scan: Report Reviewed, Image Reviewed (no accpendicitis. there is a fibroid uterus without clear sign of infacrtion of hemmorahage) Problem List - Problems (1) Uterine fibroid Assessment/Plan: 43 yo female with large exophytic unterine fibroids, possible infarction causing abdominal pain. no acute intervention from general surgery is indicated at this time. Diet as tolerated adequate analgeas urgent Panel Coverer evaluation Thank you for the opportunity to participate in the care of this patient. Code(s): D25.9 - LEIOMYOMA OF UTERUS, UNSPECIFIED Qualifiers: Uterine leiomyoma location: unspecified location Qualified Code(s): D25.9 - Leiomyoma of uterus, unspecified (2) Multiple sclerosis Code(s): G35 - MULTIPLE SCLEROSIS (3) Anemia Code(s): D64.9 - ANEMIA, UNSPECIFIED Qualifiers: Anemia type: iron deficiency (4) Abdominal pain Code(s): R10.9 - UNSPECIFIED ABDOMINAL PAIN
--- NOTE | 2018-07-16 15:16 | PN ---
Progress Note, Physician History of Present Illness: Awake, alert Supine in bed Now with lower abdominal pain more localized to RLQ No N/V Less vaginal bleeding Low grade fever - Current Medication List Current Medications: Active Medications Acetaminophen (Tylenol -) 650 mg PO Q4H PRN PRN Reason: FEVER Last Admin: 07/15/18 21:30 Dose: 650 mg Doxycycline Hyclate (Vibramycin -) 100 mg PO BID@1000,1800 ARLYN Last Admin: 07/16/18 09:35 Dose: 100 mg Piperacillin Sod/Tazobactam (Sod 3.375 gm/ Dextrose) 50 mls @ 100 mls/hr IVPB Q8H-IV ARLYN; Protocol Last Admin: 07/16/18 09:35 Dose: 100 mls/hr Tramadol HCl (Ultram -) 50 mg PO Q6H PRN PRN Reason: PAIN LEVEL 6-10 Last Admin: 07/15/18 15:37 Dose: 50 mg - Objective Vital Signs: Vital Signs Temperature 100.0 F H 07/16/18 10:00 Pulse Rate 65 07/16/18 10:00 Respiratory Rate 20 07/16/18 10:00 Blood Pressure 109/78 07/16/18 10:00 O2 Sat by Pulse Oximetry (%) 98 07/15/18 21:00 Constitutional: Yes: No Distress Cardiovascular: Yes: Regular Rate and Rhythm, S1, S2 Respiratory: Yes: CTA Bilaterally Gastrointestinal: Yes: Normal Bowel Sounds, Soft, Tenderness, Other (+ RLQ tenderness to palp) Edema: No Labs: CBC, BMP 07/16/18 06:00 07/16/18 06:00 Assessment/Plan Now more localized RLQ tenderness R/O appendicitis Fibroid uterus/ vaginal bleeding/ anemia Fever ? degenerating fibroid ? PID ? appendicits For stat CT abdo/ pelvis Surgical consult appreciated Continue zosyn/ doxycycline
[2018-07-16] MEDS: ACETAMINOPHEN 325 MG TABLET (FP) PO PRN (17:12)
[2018-07-16] MEDS: traMADol HCL 50 MG TABLET PO PRN (18:07)
--- NOTE | 2018-07-16 20:47 | PN ---
Progress Note (short form) - Note Progress Note: Patient seen and examined Feels better. 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
[2018-07-17 00:08] LABS: GLIADIN ANTIBODY IGA 4 units (0-19); GLIADIN ANTIBODY IGG 2 units (0-19); TRANSGLUTAMINASE IGG 3 U/mL (0-5)
[2018-07-17] MEDS ORDERED: PIPERACILLIN/TAZOBACTAM 3.375 GM VIAL IVPB ONE ×3 (03:32→19:17)
[2018-07-17] MEDS ORDERED: DEXTROSE 5%-WATER - 50 ML IVPB ONE ×3 (03:32→19:18)
[2018-07-17] MEDS: PIPERACILLIN/TAZOB 3.375 GM 3.375 GM in DEXTROSE 5%-WATER - 50 ML IVPB SCH ×3 (03:43→19:20)
[2018-07-17 09:12] LABS: HEMATOCRIT 27.4 % (32.4-45.2); HEMOGLOBIN 8.6 GM/dL (10.7-15.3); MCH 22.6 pg (25.7-33.7); MCHC 31.3 g/dl (32.0-36.0); MEAN CELL VOLUME 72.2 fl (80-96); MEAN PLT VOLUME 7.9 fl (7.5-11.1); PLATELET COUNT 371 K/MM3 (134-434); RBC 3.79 M/mm3 (3.60-5.2); RDW 22.2 % (11.6-15.6)
[2018-07-17] MEDS ORDERED: PT OWN MED DRAWER 7, Y5N ONE (09:25)
[2018-07-17] MEDS: DOXYCYCLINE HYCLATE 100 MG CAPSULE PO SCH ×2 (09:34→19:20)
[2018-07-17 09:38] LABS: ALBUMIN 3.1 g/dl (3.4-5.0); ALK PHOS 91 U/L (45-117); ANION GAP 6 MMOL/L (8-16); BILIRUBIN,TOTAL 0.7 mg/dL (0.2-1); BLOOD UREA NITROGEN 5 mg/dL (7-18); CALCIUM 8.4 mg/dL (8.5-10.1); CHLORIDE 102 mmol/L (98-107); CO2 30 mmol/L (21-32); CREATININE 0.7 mg/dL (0.55-1.3); GLUCOSE,RANDOM 89 mg/dL (74-106); POTASSIUM 3.9 mmol/L (3.5-5.1); SGOT/AST 32 U/L (15-37); SGPT/ALT 28 U/L (13-61); SODIUM 139 mmol/L (136-145); TOT PROT 7.1 g/dl (6.4-8.2)
[2018-07-17] MEDS: traMADol HCL 50 MG TABLET PO PRN (09:38)
[2018-07-17] MEDS ORDERED: IRON SUCROSE INJECTION 200 MG in SODIUM CHLORIDE 90 ML IVPB ONE (10:15)
--- NOTE | 2018-07-17 11:27 | PN ---
Progress Note, Physician Chief Complaint: Abdominal pain Anemia Uterine fibroids History of Present Illness: NAD c/o abdominal pain On IV abx for intermittent fevers Cultures so far negative CT abd/pelvis: No obvious acute appendicitis is seen as discussed above. If there is ongoing clinical concern additional evaluation utilizing contrast enhanced CT or MRI is suggested. As on a prior CT exam of 07/21/2017 an approximately 6.4 cm subserosal leiomyoma is noted along the right superolateral aspect of the uterine fundus bulging into the right mid and upper pelvis. - Current Medication List Current Medications: Active Medications Acetaminophen (Tylenol -) 650 mg PO Q4H PRN PRN Reason: FEVER Last Admin: 07/16/18 17:12 Dose: 650 mg Doxycycline Hyclate (Vibramycin -) 100 mg PO BID@1000,1800 ARLYN Last Admin: 07/17/18 09:34 Dose: 100 mg Piperacillin Sod/Tazobactam (Sod 3.375 gm/ Dextrose) 50 mls @ 100 mls/hr IVPB Q8H-IV ARLYN; Protocol Last Admin: 07/17/18 09:34 Dose: 100 mls/hr Tramadol HCl (Ultram -) 50 mg PO Q6H PRN PRN Reason: PAIN LEVEL 6-10 Last Admin: 07/17/18 09:38 Dose: 50 mg - Objective Vital Signs: Vital Signs Temperature 98.2 F 07/17/18 10:00 Pulse Rate 79 07/17/18 10:00 Respiratory Rate 18 07/17/18 10:00 Blood Pressure 104/67 07/17/18 10:00 O2 Sat by Pulse Oximetry (%) 98 07/16/18 09:00 Constitutional: Yes: Well Nourished, No Distress, Calm Cardiovascular: Yes: Regular Rate and Rhythm Respiratory: Yes: Regular Gastrointestinal: Yes: Normal Bowel Sounds, Soft, Tenderness (BL LQ) Musculoskeletal: Yes: WNL Extremities: Yes: WNL Edema: No Peripheral Pulses WNL: Yes Neurological: Yes: Alert, Oriented Psychiatric: Yes: Alert, Oriented Labs: CBC, BMP 07/17/18 08:11 07/17/18 08:11 Problem List - Problems (1) Anemia Assessment/Plan: -2/2 to fibroids and heavy menstrual bleeding -Low on iron -thyroid profile, b12, stool OB-negative -replete Iron with Venofer -Seen by Dr Lopez -PRBC for Hg below 7.0 -hematology consult on board -monitor labs Code(s): D64.9 - ANEMIA, UNSPECIFIED Qualifiers: Anemia type: iron deficiency (2) Uterine fibroid Assessment/Plan: -ETCHER AIRCRAFT consult on board-no intervention recommended at this time -Seen by Surgery-no surgical intervention recommended at this time Code(s): D25.9 - LEIOMYOMA OF UTERUS, UNSPECIFIED Qualifiers: Uterine leiomyoma location: unspecified location Qualified Code(s): D25.9 - Leiomyoma of uterus, unspecified (3) Abdominal pain Assessment/Plan: -acetaminophen 650 mg po Q6H PRN -Tramadol 50 mg Q6h PRN for pain 6-10 -CT abd: No obvious acute appendicitis is seen as discussed above. If there is ongoing clinical concern additional evaluation utilizing contrast enhanced CT or MRI is suggested. As on a prior CT exam of 07/21/2017 an approximately 6.4 cm subserosal leiomyoma is noted along the right superolateral aspect of the uterine fundus bulging into the right mid and upper pelvis. -MRI abdomen/pelvis results pending Code(s): R10.9 - UNSPECIFIED ABDOMINAL PAIN Assessment/Plan see problem list Self ambulatory
--- NOTE | 2018-07-17 11:48 | PN ---
Progress Note, Physician History of Present Illness: Awake, alert Supine in bed Less R lower abdominal pain No N/V No vaginal bleeding Temps down afebrile - Current Medication List Current Medications: Active Medications Acetaminophen (Tylenol -) 650 mg PO Q4H PRN PRN Reason: FEVER Last Admin: 07/16/18 17:12 Dose: 650 mg Doxycycline Hyclate (Vibramycin -) 100 mg PO BID@1000,1800 ARLYN Last Admin: 07/17/18 09:34 Dose: 100 mg Piperacillin Sod/Tazobactam (Sod 3.375 gm/ Dextrose) 50 mls @ 100 mls/hr IVPB Q8H-IV ARLYN; Protocol Last Admin: 07/17/18 09:34 Dose: 100 mls/hr Tramadol HCl (Ultram -) 50 mg PO Q6H PRN PRN Reason: PAIN LEVEL 6-10 Last Admin: 07/17/18 09:38 Dose: 50 mg - Objective Vital Signs: Vital Signs Temperature 98.2 F 07/17/18 10:00 Pulse Rate 79 07/17/18 10:00 Respiratory Rate 18 07/17/18 10:00 Blood Pressure 104/67 07/17/18 10:00 O2 Sat by Pulse Oximetry (%) 98 07/16/18 09:00 Constitutional: Yes: No Distress Eyes: Yes: Conjunctiva Clear Cardiovascular: Yes: Regular Rate and Rhythm, S1, S2 Respiratory: Yes: CTA Bilaterally Gastrointestinal: Yes: Normal Bowel Sounds, Soft. No: Tenderness Labs: CBC, BMP 07/17/18 08:11 07/17/18 08:11 Assessment/Plan Fibroid uterus/ vaginal bleeding/ anemia Fever ? degenerating fibroid ? PID ? appendicits CT/ MRI poorly visualized Discussed with radiologist suggested CT A/P with IV/oral contrasr to better visualized appendix Continue zosyn/ doxycycline
[2018-07-17] MEDS: ACETAMINOPHEN 325 MG TABLET (FP) PO PRN (15:15)
[2018-07-18] MEDS ORDERED: PIPERACILLIN/TAZOBACTAM 3.375 GM VIAL IVPB ONE ×3 (00:36→17:08)
[2018-07-18] MEDS ORDERED: DEXTROSE 5%-WATER - 50 ML IVPB ONE ×3 (00:37→17:09)
[2018-07-18] MEDS: traMADol HCL 50 MG TABLET PO PRN (01:18)
[2018-07-18] MEDS: PIPERACILLIN/TAZOB 3.375 GM 3.375 GM in DEXTROSE 5%-WATER - 50 ML IVPB SCH ×3 (01:19→17:17)
--- NOTE | 2018-07-18 08:40 | PN ---
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
[2018-07-18] MEDS ORDERED: PT OWN MED DRAWER 7, Y5N ONE ×2 (09:40→17:08)
[2018-07-18] MEDS: DOXYCYCLINE HYCLATE 100 MG CAPSULE PO SCH ×2 (09:56→17:17)
--- NOTE | 2018-07-18 10:28 | PN ---
Progress Note, Physician Chief Complaint: Abdominal pain Anemia Uterine fibroids History of Present Illness: NAD c/o abdominal pain On IV abx for intermittent fevers Cultures so far negative CT abd/pelvis: No obvious acute appendicitis is seen as discussed above. If there is ongoing clinical concern additional evaluation utilizing contrast enhanced CT or MRI is suggested. As on a prior CT exam of 07/21/2017 an approximately 6.4 cm subserosal leiomyoma is noted along the right superolateral aspect of the uterine fundus bulging into the right mid and upper pelvis. Repeat CT abd/pelvis with IV and PO contrast-results pending afebrile overnight - Current Medication List Current Medications: Active Medications Acetaminophen (Tylenol -) 650 mg PO Q4H PRN PRN Reason: FEVER Last Admin: 07/17/18 15:15 Dose: 650 mg Doxycycline Hyclate (Vibramycin -) 100 mg PO BID@1000,1800 ARLYN Last Admin: 07/18/18 09:56 Dose: 100 mg Piperacillin Sod/Tazobactam (Sod 3.375 gm/ Dextrose) 50 mls @ 100 mls/hr IVPB Q8H-IV ARLYN; Protocol Last Admin: 07/18/18 09:56 Dose: 100 mls/hr Tramadol HCl (Ultram -) 50 mg PO Q6H PRN PRN Reason: PAIN LEVEL 6-10 Last Admin: 07/18/18 01:18 Dose: 50 mg - Objective Vital Signs: Vital Signs Temperature 98.3 F 07/18/18 10:00 Pulse Rate 62 07/18/18 10:00 Respiratory Rate 20 07/18/18 10:00 Blood Pressure 110/54 L 07/18/18 10:00 O2 Sat by Pulse Oximetry (%) 100 07/17/18 21:00 Constitutional: Yes: Well Nourished, No Distress, Calm Cardiovascular: Yes: Regular Rate and Rhythm Respiratory: Yes: Regular Gastrointestinal: Yes: Normal Bowel Sounds, Tenderness (RLQ) Genitourinary: Yes: WNL Musculoskeletal: Yes: WNL Extremities: Yes: WNL Edema: No Peripheral Pulses WNL: Yes Neurological: Yes: Alert, Oriented Psychiatric: Yes: Alert, Oriented Labs: CBC, BMP 07/17/18 08:11 07/17/18 08:11 Problem List - Problems (1) Anemia Assessment/Plan: -2/2 to fibroids and heavy menstrual bleeding -Low on iron -thyroid profile, b12, stool OB-negative -replete Iron with Venofer -Seen by Dr Lopez -PRBC for Hg below 7.0 -hematology consult on board -monitor labs Code(s): D64.9 - ANEMIA, UNSPECIFIED Qualifiers: Anemia type: iron deficiency (2) Uterine fibroid Assessment/Plan: -COMPOUND WORKER consult on board-no intervention recommended at this time -Seen by Surgery-no surgical intervention recommended at this time Code(s): D25.9 - LEIOMYOMA OF UTERUS, UNSPECIFIED Qualifiers: Uterine leiomyoma location: unspecified location Qualified Code(s): D25.9 - Leiomyoma of uterus, unspecified (3) Abdominal pain Assessment/Plan: -acetaminophen 650 mg po Q6H PRN -Tramadol 50 mg Q6h PRN for pain 6-10 -CT abd: No obvious acute appendicitis is seen as discussed above. If there is ongoing clinical concern additional evaluation utilizing contrast enhanced CT or MRI is suggested. As on a prior CT exam of 07/21/2017 an approximately 6.4 cm subserosal leiomyoma is noted along the right superolateral aspect of the uterine fundus bulging into the right mid and upper pelvis. -MRI abdomen/pelvis results reviewed, unable to see the appendix -CT abd/pelvis with PO and IV contrast results pending Code(s): R10.9 - UNSPECIFIED ABDOMINAL PAIN Assessment/Plan see problem list Self ambulatory
--- NOTE | 2018-07-18 19:56 | PN ---
Progress Note, Physician History of Present Illness: Awake, alert Supine in bed Reports less R lower abdominal pain No N/V No vaginal bleeding Temps down afebrile - Current Medication List Current Medications: Active Medications Acetaminophen (Tylenol -) 650 mg PO Q4H PRN PRN Reason: FEVER Last Admin: 07/17/18 15:15 Dose: 650 mg Doxycycline Hyclate (Vibramycin -) 100 mg PO BID@1000,1800 ARLYN Last Admin: 07/18/18 17:17 Dose: 100 mg Piperacillin Sod/Tazobactam (Sod 3.375 gm/ Dextrose) 50 mls @ 100 mls/hr IVPB Q8H-IV ARLYN; Protocol Last Admin: 07/18/18 17:17 Dose: 100 mls/hr Tramadol HCl (Ultram -) 50 mg PO Q6H PRN PRN Reason: PAIN LEVEL 6-10 Last Admin: 07/18/18 01:18 Dose: 50 mg - Objective Vital Signs: Vital Signs Temperature 98.9 F 07/18/18 18:11 Pulse Rate 60 07/18/18 18:11 Respiratory Rate 18 07/18/18 18:11 Blood Pressure 102/59 L 07/18/18 18:11 O2 Sat by Pulse Oximetry (%) 96 07/18/18 09:00 Constitutional: Yes: No Distress Eyes: Yes: Conjunctiva Clear Cardiovascular: Yes: Regular Rate and Rhythm, S1, S2 Respiratory: Yes: CTA Bilaterally Gastrointestinal: Yes: Normal Bowel Sounds, Soft, Other (no RLQ tenderness) Edema: No Labs: CBC, BMP 07/17/18 08:11 07/17/18 08:11 Assessment/Plan Fibroid uterus/ vaginal bleeding/ anemia Fever likely secondary to degenerating fibroid CT no evidence of appendicitis Continue zosyn/ doxycycline If stable switch to po next 24hr
[2018-07-19] MEDS ORDERED: DEXTROSE 5%-WATER - 50 ML IVPB ONE ×3 (01:15→17:23)
[2018-07-19] MEDS ORDERED: PIPERACILLIN/TAZOBACTAM 3.375 GM VIAL IVPB ONE ×3 (01:15→17:23)
[2018-07-19] MEDS: PIPERACILLIN/TAZOB 3.375 GM 3.375 GM in DEXTROSE 5%-WATER - 50 ML IVPB SCH ×3 (02:05→17:29)
--- NOTE | 2018-07-19 08:11 | PN ---
Progress Note (short form) - Note Progress Note: doing much better , afebrile CBC, BMP 07/17/18 08:11 07/17/18 08:11 Last Vital Signs Temp Pulse Resp BP Pulse Ox 98.0 F 58 L 18 108/63 96 07/19/18 06:00 07/19/18 06:00 07/19/18 06:00 07/19/18 06:00 07/18/18 21:00 abdomen soft, no distension, no cva , mild suprapubic tenderness with deep palpation BS present no vaginal bleeding impression resolving pid plan cont iv antibiotic for 24 hr more , then can be d/c on po antibiotics for 1 week follow up office 2 weeks
--- NOTE | 2018-07-19 09:47 | PN ---
Progress Note, Physician - Current Medication List Current Medications: Active Medications Acetaminophen (Tylenol -) 650 mg PO Q4H PRN PRN Reason: FEVER Last Admin: 07/17/18 15:15 Dose: 650 mg Doxycycline Hyclate (Vibramycin -) 100 mg PO BID@1000,1800 ARLYN Last Admin: 07/18/18 17:17 Dose: 100 mg Piperacillin Sod/Tazobactam (Sod 3.375 gm/ Dextrose) 50 mls @ 100 mls/hr IVPB Q8H-IV ARLYN; Protocol Last Admin: 07/19/18 02:05 Dose: 100 mls/hr Tramadol HCl (Ultram -) 50 mg PO Q6H PRN PRN Reason: PAIN LEVEL 6-10 Last Admin: 07/18/18 01:18 Dose: 50 mg - Objective Vital Signs: Vital Signs Temperature 98.0 F 07/19/18 06:00 Pulse Rate 58 L 07/19/18 06:00 Respiratory Rate 18 07/19/18 06:00 Blood Pressure 108/63 07/19/18 06:00 O2 Sat by Pulse Oximetry (%) 96 07/18/18 21:00 Cardiovascular: Yes: S1, S2 Respiratory: Yes: Regular, CTA Bilaterally Gastrointestinal: Yes: Normal Bowel Sounds, Soft. 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 If there is ongoing clinical concern additional evaluation utilizing contrast enhanced CT or MRI is suggested. As on a prior CT exam of 07/21/2017 an approximately 6.4 cm subserosal leiomyoma is noted along the right superolateral aspect of the uterine fundus bulging into the right mid and upper pelvis. -MRI abdomen/pelvis results reviewed, unable to see the appendix -CT abd/pelvis with PO and IV contrast results pending Code(s): R10.9 - UNSPECIFIED ABDOMINAL PAIN Assessment/Plan see problem list Self ambulatory
[2018-07-19 10:07] LABS: HGB SOLUBILITY Negative (Negative); Hgb C 0 % (0.0); Hgb F 0 % (0.0-2.0); Hgb S 0 % (0.0)
[2018-07-19] MEDS ORDERED: PT OWN MED DRAWER 7, Y5N ONE ×3 (10:46→17:22)
[2018-07-19] MEDS: DOXYCYCLINE HYCLATE 100 MG CAPSULE PO SCH ×2 (10:59→17:29)
--- NOTE | 2018-07-19 13:40 | PN ---
Progress Note, Physician History of Present Illness: Awake, alert Seated in bed No c/o RLQ pain No N/V No vaginal bleeding Temps down afebrile - Current Medication List Current Medications: Active Medications Acetaminophen (Tylenol -) 650 mg PO Q4H PRN PRN Reason: FEVER Last Admin: 07/17/18 15:15 Dose: 650 mg Doxycycline Hyclate (Vibramycin -) 100 mg PO BID@1000,1800 ARLYN Last Admin: 07/19/18 10:59 Dose: 100 mg Piperacillin Sod/Tazobactam (Sod 3.375 gm/ Dextrose) 50 mls @ 100 mls/hr IVPB Q8H-IV ARLYN; Protocol Last Admin: 07/19/18 10:58 Dose: 100 mls/hr Tramadol HCl (Ultram -) 50 mg PO Q6H PRN PRN Reason: PAIN LEVEL 6-10 Last Admin: 07/18/18 01:18 Dose: 50 mg - Objective Vital Signs: Vital Signs Temperature 98.1 F 07/19/18 11:55 Pulse Rate 62 07/19/18 10:57 Respiratory Rate 20 07/19/18 10:57 Blood Pressure 106/64 07/19/18 10:57 O2 Sat by Pulse Oximetry (%) 96 07/18/18 21:00 Constitutional: Yes: No Distress Eyes: Yes: Conjunctiva Clear Cardiovascular: Yes: Regular Rate and Rhythm, S1, S2 Respiratory: Yes: CTA Bilaterally Gastrointestinal: Yes: Normal Bowel Sounds, Soft. No: Tenderness Edema: No Labs: CBC, BMP 07/17/18 08:11 07/17/18 08:11 Assessment/Plan Fibroid uterus/ vaginal bleeding/ anemia Fever likely secondary to degenerating fibroid CT no evidence of appendicitis may substitute Augmentin 875mg po bid x 7d
--- NOTE | 2018-07-19 14:50 | PN ---
Progress Note (short form) - Note Progress Note: Patient seen and examined at bedside feels well wants to go home Vital Signs Temperature 98.1 F 07/19/18 11:55 Pulse Rate 62 07/19/18 10:57 Respiratory Rate 20 07/19/18 10:57 Blood Pressure 106/64 07/19/18 10:57 O2 Sat by Pulse Oximetry (%) 96 07/18/18 21:00 PE: NAD lying in bed AAOx3 RRR S1 S2 CTAB Soft non tender non distended no calf tenderness no lower extremity edema 07/14/18 11:21 Blood Type A POSITIVE Antibody Screen Negative 07/15/18 11:35 Blood Culture - Preliminary Blood - Peripheral Venous NO GROWTH OBTAINED AFTER 96 HOURS, INCUBATION TO CONTINUE FOR 1 DAYS. 07/15/18 11:25 Blood Culture - Preliminary Blood - Peripheral Venous NO GROWTH OBTAINED AFTER 96 HOURS, INCUBATION TO CONTINUE FOR 1 DAYS. 07/14/18 18:30 Blood Culture - Preliminary Blood - Peripheral Venous NO GROWTH OBTAINED AFTER 96 HOURS, INCUBATION TO CONTINUE FOR 1 DAYS. 07/14/18 17:30 Blood Culture - Preliminary Blood - Peripheral Venous NO GROWTH OBTAINED AFTER 96 HOURS, INCUBATION TO CONTINUE FOR 1 DAYS. 07/14/18 08:43 Urine Culture - Final Urine - Urine Clean Catch NO GROWTH OBTAINED 43F with history of MS andf fibroids presents with painful menorrhagia. 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
[2018-07-19] MEDS ORDERED: IRON POLYSACCHARIDES 150 MG CAPSULE PO SCH (14:54)
[2018-07-19] MEDS ORDERED: IRON SUCROSE INJECTION 200 MG in SODIUM CHLORIDE 90 ML IVPB ONE (15:00)
[2018-07-19] MEDS ORDERED: IRON POLYSACCHARIDES 150 MG CAPSULE PO ONE (15:45)
[2018-07-20] MEDS ORDERED: PIPERACILLIN/TAZOBACTAM 3.375 GM VIAL IVPB ONE ×2 (00:57→09:08)
[2018-07-20] MEDS ORDERED: DEXTROSE 5%-WATER - 50 ML IVPB ONE ×2 (00:58→09:08)
[2018-07-20] MEDS: PIPERACILLIN/TAZOB 3.375 GM 3.375 GM in DEXTROSE 5%-WATER - 50 ML IVPB SCH ×2 (02:09→09:12)
[2018-07-20 08:54] VITALS: BP 115/69; PULSE 69; TEMP 98.6
[2018-07-20] MEDS ORDERED: PT OWN MED DRAWER 7, Y5N ONE (09:08)
[2018-07-20] MEDS: DOXYCYCLINE HYCLATE 100 MG CAPSULE PO SCH ×2 (09:11→09:12)
[2018-07-20] MEDS: IRON POLYSACCHARIDES 150 MG CAPSULE PO SCH ×2 (09:11→09:12)
[2018-07-20] MEDS ORDERED: IRON POLYSACCHARIDES 150 MG CAPSULE PO SCH (10:00)
--- NOTE | 2018-07-20 13:08 | DS ---
Physical Examination Vital Signs: Vital Signs Temperature 98.6 F 07/20/18 08:47 Pulse Rate 69 07/20/18 08:47 Respiratory Rate 20 07/20/18 08:47 Blood Pressure 115/69 07/20/18 08:47 O2 Sat by Pulse Oximetry (%) 96 07/19/18 21:00 Constitutional: Yes: Calm Cardiovascular: Yes: Regular Rate and Rhythm Respiratory: Yes: CTA Bilaterally Gastrointestinal: Yes: Normal Bowel Sounds, Soft Edema: No Neurological: Yes: Alert, Oriented Labs: CBC, BMP 07/17/18 08:11 07/17/18 08:11 Discharge Summary Reason For Visit: UTERINE LEOMYOMA, ANEMIA Current Active Problems Anemia (Acute) Multiple sclerosis (Acute) Uterine fibroid (Acute) Other Procedures: ct scan abdomen no appedicitis- pancreatic cyst. MRI pelvis shows degenerating fibroid Hospital Course: PCP: Shara Barrett I (Stephanie Belcher) - Admission Chief Complaint: Suprapubic pain. Anemia History of Present Illness: Patient with history of multiple sclerosis not on medication a uterine fibroid present with complain of 4 days history of suprapubic and right pelvic pain since that her menstrual period 4 days ago. Patient reports she usually doesn't get this kind of pain with her menses and have regular monthly menstrual periods. Patient reported she was told she had uterine fibroids 3 years ago. Patient denies fever, chills, nausea, vomiting, diarrhea or constipation. 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, was told she has small fibroids and to monitor Received 2 units of PRBC upon admission IN hospital seen by booker.ID started on iv zosyn po doxycycline change to po augmentin RLQ abdominal pain - ct scan done no appendicitis MRI pelvis degernating fbrioid to follow up with in office anemia got prbc and then iv iron and started on po iron Condition: Stable - Instructions Diet, Activity, Other Instructions: continue augmeitn for 7 days follow up with Dr Saenz as outpatient Referrals: Augustin Olmedo [Primary Care Provider] - 1 Week Clinton Lopez MD [Staff Physician] - 2 Weeks (for fibroid in uterus) Disposition: HOME - Home Medications Comprehensive Discharge Medication List: Ambulatory Orders Amoxicillin/Potassium Clav [Augmentin 154-125 Tablet] 1 each PO BID #14 tablet MDD 2 07/20/18 Iron Polysaccharides [Niferex-150 -] 150 mg PO DAILY #30 capsule MDD 1 07/20/18
== END 2018-07-20 14:43 | disposition home or self-care (01) | DRG 761 ==
LOC: JER 07:41 → JERBED 11:12 → J5S 13:48 → OBSVTOIN 07-15 10:58
PROVIDERS: ADMIT Family Medicine; ATTEND Family Medicine
PROC: 30233N1 Transfusion of Nonautologous Red Blood Cells into Peripheral Vein, Percutaneous Approach (ICD-10-PCS; principal; 2018-07-14)
DX: D25.2 Subserosal leiomyoma of uterus (principal); D50.9 Iron deficiency anemia, unspecified; N92.0 Excessive and frequent menstruation with regular cycle; G35 Multiple sclerosis; F17.210 Nicotine dependence, cigarettes, uncomplicated; Z98.84 Bariatric surgery status
CPT/HCPCS: 36415; 36430; 36511; 71045-TC-FY; 72195-TC; 74176-TC; 74177-TC; 76830-TC; 76856-TC; 80053; 81003; 81015; 82272; 82607; 82728; 82784; 83021; 83516; 83540; 83550; 84439; 84443; 84703; 85025; 85027; 85660; 86850; 86900; 86901; 86922; 87040; 87086; 87389; 87491; 87591; 99283-25; G0378; J0131; J1756; J7030; P9038; P9058; Q9967

== ENCOUNTER 2018-09-15 06:19 | Inpatient (IN) | payer OTHER ==
[2018-09-13 17:20] VITALS: BMI 29.9
[2018-09-15] MEDS ORDERED: DEXAMETHASONE SOD PHOSPHATE/PF 10 MG/ML SDV ONE (07:22)
[2018-09-15] MEDS ORDERED: BUPIVACAINE HCL/PF 0.5% (5MG/ML) 10 ML VIAL ONE (07:23)
--- NOTE | 2018-09-15 07:26 | HP ---
History & Physical Update - History History: No Change - Physical Physical: No Change - Assessment Assessment: No Change - Plan Plan: No Change (for supracervical abdominal hysterectomy, bilateral salpingectomy, possible bso)
[2018-09-15] MEDS ORDERED: MIDAZOLAM HCL 2 MG/2 ML SINGLE DOSE VIAL ONE ×2 (08:06)
[2018-09-15] MEDS ORDERED: fentaNYL CITRATE 250 MCG/5 ML VIAL ONE (08:21)
[2018-09-15] MEDS ORDERED: LIDOCAINE HCL/PF 2% SDV 5ML VIAL ONE (08:21)
[2018-09-15] MEDS ORDERED: PROPOFOL 20 ML ONE ×2 (08:21)
[2018-09-15] MEDS ORDERED: ROCURONIUM BROMIDE 50 MG/5 ML VIAL ONE ×2 (08:22→09:24)
[2018-09-15] MEDS ORDERED: ceFAZolin SODIUM 1 GM VIAL ONE (08:36)
[2018-09-15] MEDS ORDERED: ceFAZolin SODIUM 1 GM VIAL IVPB ONE (08:40)
[2018-09-15] MEDS ORDERED: DEXAMETHASONE SOD PHOSPHATE 4 MG/1 ML VIAL ONE (09:24)
[2018-09-15] MEDS ORDERED: NEOSTIGMINE METHYLSULFATE 0.5 MG/ML - 10 ML MDV ONE (09:24)
[2018-09-15] MEDS ORDERED: GLYCOPYRROLATE 0.2 MG/1 ML VIAL ONE (09:24)
[2018-09-15] MEDS ORDERED: IBUPROFEN 800 MG/8 ML IJ IVPB PRN (10:44)
[2018-09-15] MEDS ORDERED: IBUPROFEN 600 MG TABLET (FP) PO PRN (10:44)
[2018-09-15] MEDS ORDERED: ONDANSETRON 4 MG/2 ML VIAL IVPUSH PRN (10:44)
[2018-09-15] MEDS ORDERED: oxyCODONE HCL 5 MG TABLET PO PRN (10:44)
[2018-09-15] MEDS ORDERED: ELECTROLYTE-148 SOLN 1,000 ML IV SCH (10:45)
[2018-09-15] MEDS ORDERED: ACETAMINOPHEN 325 MG TABLET (FP) PO PRN (10:49)
[2018-09-15] MEDS ORDERED: ACETAMINOPHEN 1000 MG/100 ML VIAL (NON FORMULARY) IVPB PRN (10:52)
[2018-09-15] MEDS ORDERED: PANTOPRAZOLE 40 MG TABLET (FP) PO SCH (11:00)
[2018-09-15] MEDS ORDERED: ACETAMINOPHEN INJECTION 100 ML IVPB ONE (11:03)
[2018-09-15] MEDS ORDERED: ACETAMINOPHEN 1000 MG/100 ML VIAL (NON FORMULARY) IVPB ONE (11:10)
[2018-09-15] MEDS: oxyCODONE HCL 5 MG TABLET PO PRN (15:57)
[2018-09-15] MEDS: CEFAZOLIN 2 GM/D5W 2 GM/50 ML ML IVPB SCH (18:01)
--- NOTE | 2018-09-15 19:19 | OP ---
DATE OF OPERATION: 09/15/2018 PREOPERATIVE DIAGNOSIS: Menometrorrhagia, anemia, fibroid uterus, pelvic pain. POSTOPERATIVE DIAGNOSIS: Menometrorrhagia, anemia, fibroid uterus, pelvic pain, pelvic adhesions. SURGEON: Clinton Lopez MD DETAILER PHARMACEUTICALS: Becky Paris MD ANESTHESIA: General anesthesia. ANESTHESIOLOGIST: Nayla Leach MD ESTIMATED BLOOD LOSS: 150 mL. PROCEDUR: Supracervical abdominal hysterectomy, bilateral salpingectomy with lysis of pelvic adhesions. DESCRIPTION OF PROCEDURE: The patient was taken to the operating room where under adequate general anesthesia, the abdomen and perineum was prepped. A Pfannenstiel abdominal skin incision was made over the previous incision. Abdominal wall was cut layer by layer until the fascia was excised and exposed. The fascia was cut transversely and from the muscle. I had difficulty entering the peritoneum because the uterus and the fibroids were adherent to the rectus muscle underneath. At this time, the peritoneum was entered by grasping with 2 Belkis clamps and with Metzenbaum scissors a small incision was made. It was entered. The peritoneum was excised vertically, but there was no exposure because of the fibroid and the uterus adherent to the rectus muscle and pelvic side cyr. At this time, the rectus muscle had to be cut to expose the adhesions and then adhesions were lysed with Metzenbaum scissors meticulously. There were some bowel adhesions as well to the anterior serosa of the fibroid, which was again lysed with Metzenbaum scissors. The bowels were packed away. The uterus was irregular with the fibroid and fundal area of the uterus. Both ovaries were adherent to the pelvic side wall and the bladder was tightly adherent to the mid uterine body. These adhesions again were lysed with Metzenbaum scissors and with LigaSure. Hemostasis was established and then the uterus was freed. The bladder was pushed down. Both tuboovarian ligaments were grasped with Isabella clamps and cut. The clamps were replaced with 0 Vicryl ties bilaterally. Both fallopian tubes were grasped with LigaSure cautery and cauterized along the mesosalpinx and removed. The bladder was further pushed down. Uterine artery was identified bilaterally, clamped with Isabella clamps, cut and, and the clamps were replaced with 0 Vicryl suture bilaterally. The paracervical area was clamped with a Isabella clamp, cut, and the clamp replaced with 0 Vicryl suture bilaterally. At this time, the specimen was removed above the cervix and the cervix was sutured with a suture of 2-0 Vicryl interrupted suture. Hemostasis was established. Pelvic cavity was several times irrigated. There was slight bleeding from the left ovarian peritoneal area, which was sutured with continued suture of 3-0 Vicryl. Hemostasis was established. Also the rectus muscles were repaired with interrupted suture of 0 Vicryl and brought together and approximated. The peritoneal muscles were brought together with interrupted suture of 0 Vicryl. All of the lap pad, sponge, and instrument counts were correct. The fascia was closed with 0 Vicryl continuous sutures, subcutaneous fat with interrupted 0 Vicryl, and the skin was closed with 4-0 Biosyn subcuticular continuous suture. Patient tolerated the procedure well and left the OR in good condition. The urine was clear at the end of the procedure. Silvestre [id number]
[2018-09-15] MEDS: LACTATED RINGERS SOLUTION 1,000 ML IV SCH (21:45)
[2018-09-16] MEDS: CEFAZOLIN 2 GM/D5W 2 GM/50 ML ML IVPB SCH ×2 (01:32→09:47)
[2018-09-16] MEDS: LACTATED RINGERS SOLUTION 1,000 ML IV SCH (04:20)
[2018-09-16] MEDS: oxyCODONE HCL 5 MG TABLET PO PRN ×3 (07:32→21:12)
[2018-09-16 07:37] LABS: HEMOGLOBIN 9.5 GM/dL (10.7-15.3); MCH 26.6 pg (25.7-33.7); MCHC 33.8 g/dl (32.0-36.0); MEAN CELL VOLUME 78.5 fl (80-96); MEAN PLT VOLUME 8.5 fl (7.5-11.1); PLATELET COUNT 244 K/MM3 (134-434); RBC 3.56 M/mm3 (3.60-5.2); RDW 23.4 % (11.6-15.6); WHITE BLOOD COUNT 10.9 K/mm3 (4.0-10.0)
[2018-09-16] MEDS ORDERED: BISACODYL 10 MG SUPP.RECT RC PRN (08:03)
[2018-09-16 08:11] LABS: ANION GAP 7 MMOL/L (8-16); BLOOD UREA NITROGEN 6 mg/dL (7-18); CALCIUM 8.5 mg/dL (8.5-10.1); CHLORIDE 104 mmol/L (98-107); CO2 30 mmol/L (21-32); CREATININE 0.7 mg/dL (0.55-1.3); GLUCOSE,RANDOM 95 mg/dL (74-106); POTASSIUM 3.8 mmol/L (3.5-5.1); SODIUM 141 mmol/L (136-145)
--- NOTE | 2018-09-16 08:18 | PN ---
Progress Note (short form) - Note Progress Note: Anesthesia post op Pt seen and examined S:Alert and awake O: Vital Signs Temperature 99.1 F 09/16/18 06:20 Pulse Rate 70 09/16/18 06:20 Respiratory Rate 18 09/16/18 06:20 Blood Pressure 105/55 L 09/16/18 06:20 O2 Sat by Pulse Oximetry (%) 100 09/15/18 21:00 CBC, BMP 09/16/18 07:00 09/16/18 07:00 A/P: s/p Total Abdominal hysterectomy Doing well post op Continue current care Brian Diop M.D.
[2018-09-16] MEDS ORDERED: SIMETHICONE 80 MG TAB.CHEW (FP) PO PRN (10:03)
[2018-09-16] MEDS: ENOXAPARIN NA (PORCINE) 40 MG/0.4 ML DISP.SYRIN SQ SCH (10:40)
--- NOTE | 2018-09-16 14:03 | PN ---
Progress Note (short form) - Note Progress Note: pod 1 doing well, o c/o voids ok, passing gas, ambulating CBC, BMP 09/16/18 07:00 09/16/18 07:00 Last Vital Signs Temp Pulse Resp BP Pulse Ox 98 F 74 20 119/64 100 09/16/18 10:10 09/16/18 10:10 09/16/18 10:10 09/16/18 10:10 09/15/18 21:00 abdomen soft, no distension, no va incision dry, clean no no vaginal bleeding or discharge , calf tenderness plan ambulate, advance diet plan for d/c home in am
[2018-09-16] MEDS ORDERED: SENNOSIDES 8.6MG TABLET (FP) PO PRN (22:00)
[2018-09-17] MEDS ORDERED: PANTOPRAZOLE 40 MG TABLET (FP) PO PRN (06:12)
--- NOTE | 2018-09-17 07:43 | PN ---
Progress Note (short form) - Note Progress Note: pod2 s/p hysterectomy , doing well, passing gas , ambulating, no vaginal discharge, voids ok CBC, BMP 09/16/18 07:00 09/16/18 07:00 Last Vital Signs Temp Pulse Resp BP Pulse Ox 99.4 F 74 20 121/57 L 100 09/16/18 20:58 09/16/18 20:58 09/16/18 20:58 09/16/18 20:58 09/15/18 21:00 abdomen soft, no distension, no cva BS present incision dry, clean no calf tenderness plan ambulate, if afebrile d/c home today follow up office 2 weeks instruction given
[2018-09-17 08:26] VITALS: BP 106/72; PULSE 79; TEMP 98.2
--- NOTE | 2018-09-17 08:37 | DS ---
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: Vital Signs Temperature 98.2 F 09/17/18 08:24 Pulse Rate 79 09/17/18 08:24 Respiratory Rate 20 09/17/18 08:24 Blood Pressure 106/72 09/17/18 08:24 O2 Sat by Pulse Oximetry (%) 100 09/15/18 21:00 Constitutional: Yes: Well Nourished, No Distress, Calm Eyes: Yes: WNL, Conjunctiva Clear, EOM Intact HENT: Yes: WNL, Atraumatic, Normocephalic Neck: Yes: WNL, Supple, Trachea Midline Cardiovascular: Yes: WNL, Regular Rate and Rhythm Respiratory: Yes: WNL, Regular, CTA Bilaterally Gastrointestinal: Yes: WNL ...Rectal Exam: Yes: WNL Renal/: Yes: WNL Breast(s): Yes: WNL Musculoskeletal: Yes: WNL Extremities: Yes: WNL Edema: No Integumentary: Yes: WNL Wound/Incision: Yes: Clean/Dry, Well Approximated, Sutures Intact Neurological: Yes: WNL, Alert, Oriented ...Motor Strength: WNL Psychiatric: Yes: WNL, Alert, Oriented Labs: CBC, BMP 09/16/18 07:00 09/16/18 07:00 Discharge Summary Reason For Visit: FIBROIDS UTERUS, MENORRHAGIA, Procedures: Principal: supra cervical abdominal hysterectomy, ,bilatearl salpingectomy Other Procedures: lysis of pelvic adhesions Condition: Good - Instructions Diet, Activity, Other Instructions: regular diet, no intercourse, if severe pain, heavy vaginal bleeding, fever call , followup office 2 weeks Referrals: Clinton Lopez MD [Staff Physician] - Disposition: HOME - Home Medications Comprehensive Discharge Medication List: Ambulatory Orders Iron Polysaccharides [Niferex-150 -] 150 mg PO DAILY #30 capsule MDD 1 07/20/18 Ca/D3/Mag Ox/Zinc/[employer]/Jose Maria/Bor [Calcium 600+D3 Plus Caplet] 1 each PO DAILY 03/25 Multivitamins [Tab-A-Vit -] 1 tab PO DAILY 09/13/18 [place]-3 Fatty Acids/Fish Oil [Fish Oil 1,000 mg Capsule] 1 each PO DAILY Omeprazole 40 mg PO PRN 09/13/18 Ibuprofen [Motrin -] 600 mg PO QID #28 tablet 09/16/18
[2018-09-17] MEDS: ENOXAPARIN NA (PORCINE) 40 MG/0.4 ML DISP.SYRIN SQ SCH (09:43)
--- NOTE | 2018-09-17 14:34 | PATH ---
Surgical Pathology Report Patient Name: CECILIO MCNAMARA [facility]. Rec. 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 Specimen(s) Received UTERUS AND BILATERAL FALLOPIAN TUBES Clinical History Fibroid uterus, menorrhagia Final Diagnosis UTERUS AND BILATERAL FALLOPIAN TUBES, SUPRACERVICAL HYSTERECTOMY AND BILATERAL SALPINGECTOMY: LEIOMYOMATA. PROLIFERATIVE ENDOMETRIUM. LEFT FALLOPIAN TUBE WITH PARATUBAL CYST. RIGHT FALLOPIAN TUBE WITH NO SIGNIFICANT PATHOLOGIC CHANGES. Electronically Signed Alicia Leggett M.D. Gross Description Received in formalin labeled "uterus and bilateral fallopian tubes," is a 218 g supracervically amputated uterus with an attached right fallopian tube. The left fallopian tube is separately received within the same container. The uterus measures 8 cm from superior to inferior, 7.5 cm from anterior to posterior and 5.5 cm from left to right. The serosa is dash-lawson and smooth. The endometrial cavity measures 4.3 cm in length and 2.0 cm from cornu to cornu. The endometrium is dash-red and averages 0.1 cm in thickness. There are multiple intramural nodules present, measuring up to 5.0 cm in greatest dimension. The cut surface of the nodules is dash, firm to rubbery with whorled architecture. No areas of hemorrhage or necrosis are identified. The remaining myometrium is dash-pink and measures up to 4.0 cm in thickness. The attached right fimbriated fallopian tube measures 4.5 cm in length. The outer surface is lawson purple and smooth. Sectioning reveals an unremarkable lumen. The separately received left fimbriated fallopian tube measures 0.9 cm in length. The outer surface is dash flores and smooth. Sectioning reveals an unremarkable lumen. Process Developer sections are submitted in 12 cassettes as follows: 1-cervical stump margin of resection; 2-8-bayqabgw endomyometrium; 3-5-splqdgpdl endomyometrium; 6-intramural nodules; 7-8-largest intramural nodule; 9-right fallopian tube fimbria; 10- cross sections of right fallopian tube; 11-left fallopian tube fimbria; 12-cross sections of left fallopian tube. DL/09/16/2018 saudi09/16/2018
== END 2018-09-17 13:30 | disposition home or self-care (01) | DRG 743 ==
LOC: JSAMEDAYSX 06:19 → J3W 12:34
PROVIDERS: ADMIT Obstetrics & Gynecology; ATTEND Obstetrics & Gynecology
PROC: 0UT70ZZ Resection of Bilateral Fallopian Tubes, Open Approach (ICD-10-PCS; 2018-09-15)
PROC: 0UN20ZZ Release Bilateral Ovaries, Open Approach (ICD-10-PCS; 2018-09-15)
PROC: 0UT90ZL Resection of Uterus, Supracervical, Open Approach (ICD-10-PCS; principal; 2018-09-15 08:00)
DX: D25.9 Leiomyoma of uterus, unspecified (principal); N73.6 Female pelvic peritoneal adhesions (postinfective)
CPT/HCPCS: 36415; 80048; 84703; 85027; 86850; 86900; 86901; 88309-TC; 94760; J0131

== ENCOUNTER 2020-03-03 17:03 | Emergency (ER) | payer OTHER ==
[2020-03-03 17:13] VITALS: BP 129/77; PULSE 69; TEMP 98.6; BMI 31.3
[2020-03-03] MEDS ORDERED: DIPHTH,PERTUSS(ACELL),TET 0.5 ML DISP.SYRIN IM ONE ×2 (17:16→17:17)
[2020-03-03] MEDS ORDERED: LIDOCAINE 1%/EPI 1:100000 (20 ML MULTI DOSE VIAL) ONE (17:24)
== END 2020-03-03 17:52 | disposition home or self-care (01) ==
LOC: JERFT 17:03 → JER 17:03 → JERFT 17:52
PROC: 3E0234Z Introduction of Serum, Toxoid and Vaccine into Muscle, Percutaneous Approach (ICD-10-PCS; principal; 2020-03-03)
DX: R58 Hemorrhage, not elsewhere classified (principal)
CPT/HCPCS: 90715; 99282-25

== ENCOUNTER 2021-03-08 22:46 | Emergency (ER) | payer OTHER ==
[2021-03-08 23:07] VITALS: BP 130/78; PULSE 86; TEMP 98.5; BMI 31.3
== END 2021-03-09 00:40 | disposition home or self-care (01) ==
LOC: JER 22:46
DX: F12.90 Cannabis use, unspecified, uncomplicated (principal)
CPT/HCPCS: 99283-25